=== PATIENT | male | born 1960 | race Hispanic/Latino ===

== ENCOUNTER 2017-12-24 17:09 | Emergency (ER) | payer OTHER ==
[2017-12-24] MEDS ORDERED: HYDROcodone/Acetaminophen 10/325 mg Tablet ONE (17:46)
--- NOTE | 2017-12-24 19:03 | RAD ---
THREE VIEWS OF THE LEFT ANKLE: 12/24/17 COMPARISON: None. HISTORY: Fall, trauma, pain. FINDINGS: There is prominent medial and lateral soft tissue swelling. There is a nondisplaced transverse fractu re involving the lateral malleolus just distal to the axial level of the talar dome. There is an obli quely oriented fracture extending into the ankle joint involving the medial malleolus. No evidence fo r dislocation is seen. There is an ankle joint effusion seen on the frontal examination. There is mil d enthesophyte formation at the insertion of the insertion of the Achilles tendon. IMPRESSION: Fractures of the lateral and medial malleoli. POS: [facility]
== END 2017-12-24 18:23 | disposition home or self-care (01) ==
LOC: BURERS 17:09
DX: S82.842A Displaced bimalleolar fracture of left lower leg, initial encounter for closed fracture (principal); W22.8XXA Striking against or struck by other objects, initial encounter
CPT/HCPCS: 29515